=== PATIENT | female | born 1950 | race Caucasian/White ===

== ENCOUNTER 2016-08-17 10:10 | Day surgery (SDC) | payer MEDICARE ==
[~2016-08-17] VITALS: Ht 170.2 cm; Wt 117.9 kg
[~2016-08-17 10:10] MED LIST: ADLT ASA LOW81 MG PO; ASPIRIN81 MG PO; CARVEDILOL12.5 MG PO; CARVEDILOL6.25 MG PO; CIPROFLOXACN500 MG PO; CLONIDINE0.1 MG PO; DEX OU; FLAGYL500 MG PO; FLUOCINONIDE0.055 EX; GLIPIZIDE/METFO1 TA1 PO; GLIPIZIDE5 MG PO; LANTUS100 UNIT/M SC; LEVOTHYROXIN175 MC1 PO; LEVOTHYROXIN25 MC1 PO; LISINOPRIL20 MG PO; LORTAB 7.57.5 MG PO; METFORMIN HCL1000 MG PO; METFORMIN500 MG PO; NEO OU; NORVASC10 M1 PO; PERCOCET1 TA2; PERCOCET1 TA2 PO; POLY OU; PRAVASTATIN80 MG PO; TRIAMCINOLON0.11 EX; TYLENOL500 MG OR; ZESTRIL10 M1 PO
[2016-08-17 13:11] VITALS: BP 127/61
== END 2016-08-17 13:10 | disposition home or self-care (01) ==
LOC: ENDO 10:10 → ORM 15:00 → ENDO 15:00
PROVIDERS: ATTEND Surgery
PROC: 0D5H8ZZ Destruction of Cecum, Via Natural or Artificial Opening Endoscopic (ICD-10-PCS; principal; 2016-08-17)
PROC: 0DJ08ZZ Inspection of Upper Intestinal Tract, Via Natural or Artificial Opening Endoscopic (ICD-10-PCS; 2016-08-17)
DX: D64.9 Anemia, unspecified (principal); R19.5 Other fecal abnormalities; K55.20 Angiodysplasia of colon without hemorrhage; I10 Essential (primary) hypertension; E78.5 Hyperlipidemia, unspecified; E03.9 Hypothyroidism, unspecified; E11.9 Type 2 diabetes mellitus without complications; Z90.49 Acquired absence of other specified parts of digestive tract

== ENCOUNTER 2020-01-13 09:51 | Inpatient (IN) | payer MEDICARE, MEDICAID ==
[~2020-01-13] VITALS: Ht 170.2 cm; Wt 100.0 kg
[~2020-01-13 09:51] MED LIST changes: +LEVOTHYROXIN150 MCG PO; -LEVOTHYROXIN175 MC1 PO
--- NOTE | 2020-01-13 09:51 | NUR ---
PATIENT TO ROOM VIA WHEELCHAIR AND PHYSICIAN NOTIFIED OF PATIENT STATUS
[2020-01-13 10:34] LABS: HEMATOCRIT 36.5 % (37.0-47.0); HEMOGLOBIN 11.3 g/dl (12.0-16.0); IMMATURE GRANULOCYTES 0.3 % (0.0-5.0); MEAN CELL VOLUME 83.3 fL CALC (80.0-100.0); MEAN CORPUSCULAR HGB 25.8 pG CALC (26.0-32.0); NEUT# 6.1 thou/uL (2.00-7.15); RED BLOOD COUNT 4.38 mill/uL (4.20-5.60); RED CELL DISTRI WIDTH 16.2 % (11.5-15.5)
--- NOTE | 2020-01-13 10:45 | NUR ---
1030 PATIENT RESTING QUIETLY. AT BEDSIDE.
[2020-01-13 10:50] LABS: ALKALINE PHOSPHATASE 138 u/l (38-126); ANION GAP 11 (6-22 (CALC)); BILIRUBIN, TOTAL 0.4 mg/dL (0.0-1.4); BUN 16 mg/dL (8-23); BUN/CREATININE RATIO 13 (12-20 (CALC)); CARBON DIOXIDE 26 mmol/l (22-30); CHLORIDE 108 mmol/l (95-108); CREATININE 1.2 mg/dL (0.5-1.0); GFR 45 ML/MIN (>=60 (CALC)); GFR FOR AFR.AMER. 54 ML/MIN (>=60 (CALC)); POTASSIUM 4.5 mmol/l (3.5-5.1); SGOT/AST 23 u/l (9-36); SODIUM 140 mmol/l (137-146); TOTAL PROTEIN 7.8 g/dL (6.3-8.2)
[2020-01-13 10:51] LABS: URINE BILIRUBIN - DIPSTICK NEGATIVE (NEGATIVE); URINE BLOOD DIPSTICK NEGATIVE (NEGATIVE); URINE COLOR YELLOW; URINE GLUCOSE - DIPSTICK NEGATIVE (NEGATIVE); URINE KETONE NEGATIVE (NEGATIVE); URINE LEUK ESTERASE NEGATIVE (NEGATIVE); URINE NITRITE - DIPSTICK NEGATIVE (Negative); URINE PROTEIN - DIPSTICK NEGATIVE (NEG-TRACE); URINE SPECIFIC GRAVITY <=1.005; URINE UROBILINOGEN - DIPSTICK 0.2 E.U./dL (0.2)
[2020-01-13 10:54] LABS: C-REACTIVE PROTEIN < 0.5 mg/dL (0-0.9)
[2020-01-13] MEDS ORDERED: LANTUS SOL100 UNIT/M SC ×2 (11:08→11:09)
[2020-01-13] MEDS ORDERED: MONTELUKAST SOD10 MG PO (11:13)
[2020-01-13] MEDS ORDERED: OTEZLA 10 & 201 TAB PO (11:15)
[2020-01-13] MEDS ORDERED: OZEMPIC2 MG/1.5 M SC (11:15)
--- NOTE | 2020-01-13 11:30 | NUR ---
new 20g placed in rac for cta as ordered, pt verbalizes understanding of reason/need for 2nd iv access. spouse remains at bedside
--- NOTE | 2020-01-13 12:37 | NUR ---
PATIENT NOTIFIED THAT SHE WILL BE ADMITTED TO M/S. OPPORTUNITY FOR QUESTIONS.
--- NOTE | 2020-01-13 12:48 | NUR ---
RADIOLOGY AT BEDSIDE FOR TRASNPORT OT INTERVENTIONAL RADIOLOGY FOR THORACENTESIS, PT EMOTIONAL BUT COOPERATIVE, SPOUSE REMAINS AT BEDSIDE
--- NOTE | 2020-01-13 13:30 | NUR ---
PATIENT RETURNED FROM THOROCENTESIS, STATES THAT WAS EASY! aPPEARS LESS ANXIOUS AND IS BREATHING EASIER.
--- NOTE | 2020-01-13 14:28 | NUR ---
ASSESSMENT IS COMPLETED: IV SITE IS FREE FROM REDNESS OR EDEMA. HR IS REG,PULSES ARE STRONG X4, ABD IS SOFT WITH ACTIVE BS. BREATH SOUNDS ARE CLEAR,BILATERALLY, NO C/O SOB, TELE MONITOR IN PLACE. CONTINUE TO OSBERVE AND MONITOR.
--- NOTE | 2020-01-13 14:42 | NUR ---
WARM BLANKET GIVEN FOR COMFORT. WAITING ON ROOM. SPOUSE AT BEDSIDE.
--- NOTE | 2020-01-13 15:16 | NUR ---
antibiotic infusion completed. Spouse at bedside. Patient doing well.
--- NOTE | 2020-01-13 15:31 | NUR ---
RECEIVED REPORT FROM KELSEY TURK IN THE ER.
--- NOTE | 2020-01-13 15:40 | NUR ---
to ms reilly 289 via wc. alatorre. report to Maryann GORDON in SBAR format. IV SITES HEALTHY AND PATENT.
--- NOTE | 2020-01-13 15:48 | NUR ---
PT ARRIVED VIA WC WITH STAFF. IV SITE FREE FROM REDNESS OR EDEMA.
[2020-01-13 16:00] VITALS: BP 133/65
--- NOTE | 2020-01-13 16:50 | NUR ---
PT HASBEEN SITTING IN THE COUCH. NO DISTRESS NOTED. C/O BEING COLD. CONTINUE TO OSBERVE AND MONITOR.
[2020-01-13 19:40] VITALS: BP 134/64
--- NOTE | 2020-01-13 20:45 | NUR ---
PT UP WALKING AROUND THE ROOM. NO S/O DISTRESS OR SOB. PT DENIES FEELING SOB, REPORTS FEELING MUCH BETTER THAN EARLIER. DRESSING TO R.SIDE OF BACK THORO INSERTION SITE APPEARS CDI. PT REPORTS BM EARLIER THIS AFTERNOON, DENIES DIAHRREA,NAUSEA AND REPORTS MINIMAL OCCASIONAL COUGH W/SCANT SPUTUM. MEDICATION ADMINISTERED AT THIS TIME PER ORDERS. POC AND DC DISCUSSED WITH PT. SHE REPORTS THAT SHE MAY WANT TO HAVE A SLEEP AIDE LATER, PT INSTRUCTED TO CALL WHEN SHE IS READY FOR IT, VERBALIZED UNDERSTANDING. CALL LIGHT IN HAND. PT REPORTS SHE IS GOING TO WATCH "THE VOICE" ON TV.
--- NOTE | 2020-01-13 22:45 | NUR ---
PT MEDICATED FOR SLEEP PER REQUEST. PT DENIES ANY OTHER NEEDS.
[2020-01-13 23:29] VITALS: BP 139/60
--- NOTE | 2020-01-13 23:48 | NUR ---
PT APPEARS TO BE SLEEPING, OPENED EYES I ENTERED, DENIES ANY NEEDS.
--- NOTE | 2020-01-14 05:11 | NUR ---
PT SITING IN RECLINER AWAKE, READING ON COMPUTER. NO S/O DISTRESS NOTED. PT REPORTS WANTING TO LEAVE TODAY TO GO TO [place] AND TO [place]. PT REQUESTING COFFEE AND ICE, WILL PROVIDE IN 30 MIN. EXPLAINED TO THE PT THAT SHE NEEDS TO WAIT A LITTLE WHILE AFTER TAKING SYNTHROID, VERBALIZED UNDERSTANDING. CALL LIGHT AT SIDE AND PT ENCOURAGED TO CALL NEEDS ARISE.
[2020-01-14 05:17] VITALS: BP 124/56
[2020-01-14 05:27] LABS: HEMATOCRIT 36.7 % (37.0-47.0); HEMOGLOBIN 11.3 g/dl (12.0-16.0); IMMATURE GRANULOCYTES 0.5 % (0.0-5.0); MEAN CELL VOLUME 83.4 fL CALC (80.0-100.0); MEAN CORPUSCULAR HGB 25.7 pG CALC (26.0-32.0); MEAN CORPUSCULAR HGB CONC 30.8 g/dL CAL (32.0-36.0); NEUT# 7.53 thou/uL (2.00-7.15); RED BLOOD COUNT 4.4 mill/uL (4.20-5.60); RED CELL DISTRI WIDTH 16.4 % (11.5-15.5)
[2020-01-14 06:11] LABS: ALBUMIN 3.4 g/dL (3.2-5.0); ALKALINE PHOSPHATASE 122 u/l (38-126); ANION GAP 13 (6-22 (CALC)); BILIRUBIN, TOTAL 0.5 mg/dL (0.0-1.4); BUN 11 mg/dL (8-23); BUN/CREATININE RATIO 12 (12-20 (CALC)); CALCULATED LDLCHOLESTEROL 73 mg/dL (62-129 (CALC)); CARBON DIOXIDE 22 mmol/l (22-30); CHLORIDE 110 mmol/l (95-108); CHOLESTEROL HDL RATIO 4.5 (<4.4 (CALC)); CREATININE 0.9 mg/dL (0.5-1.0); GFR > 60 ML/MIN (>=60 (CALC)); GFR FOR AFR.AMER. > 60 ML/MIN (>=60 (CALC)); HDL CHOLESTEROL 28 mg/dL (>=40); MAGNESIUM 2.2 mg/dL (1.6-2.3); POTASSIUM 4.7 mmol/l (3.5-5.1); SGOT/AST 20 u/l (9-36); SODIUM 141 mmol/l (137-146); TOTAL CHOLESTEROL 124 mg/dl (0-199); TOTAL PROTEIN 6.8 g/dL (6.3-8.2); TOTAL TRIGLYCERIDES 116 mg/dl (30-149); VLDL CHOLESTROL 23 mg/dl (1-41 (CALC))
[2020-01-14 07:45] VITALS: BP 118/53
--- NOTE | 2020-01-14 07:45 | NUR ---
ASSESSMENT IS COMPLETED: IV SITE IS FREE FROM REDNESS OR EDEMA. HR IS REG,PULSES ARE STRONG X4, ABD IS SOFT WITH ACTIVE BS. BREATH SOUNDS ARE CLEAR, BILATERALLY, NO C/O SOB. PT STATED" FEEL A LITTLE WINDED, BUT NOT BAD". TELE MONTIOR IN PLACE. CONTINUE TO OBSERVE AND MONITOR.
--- NOTE | 2020-01-14 10:46 | NUR ---
PT BEING TRANSPORTED TO HAVE A CXR COMPLETED VIA WC
--- NOTE | 2020-01-14 11:05 | NUR ---
PT RETURNED FROM HAVING CXR COMPLETED
[2020-01-14] MEDS ORDERED: ZITHROMAX250 MG PO (11:24)
[2020-01-14 11:33] VITALS: BP 116/53
--- NOTE | 2020-01-14 12:15 | NUR ---
PT IS RELAXING ON THE SIDE OF THE BED, NO DISTRESS NOTED IV SITE IS FREE FROM REDNESS OR EDEMA.
[2020-01-14] MEDS ORDERED: XARELTO20 MG PO (12:24)
--- NOTE | 2020-01-14 13:15 | NUR ---
DISCHARGE INSTRUCTIONS GIVEN AND VERBALIZED UNDERSTANDING. IV SITE DISCONTINUED CATHETER INTACT,.FAMILY WAITING FOR PT. CONTINUE TO OSBERVE AND MONITOR.
--- NOTE | 2020-01-14 13:30 | NUR ---
Discharge instructions given. Patient verbalizes understanding of same. Discharged in stable condition via Wheelchair to Home with family. All belongings sent with pt.
== END 2020-01-14 13:35 | disposition home or self-care (01) | DRG 194 ==
LOC: ED 09:51 → ED-I 12:32 → ED 12:50 → MS2 12:51
PROVIDERS: Family Medicine; Nurse Practitioner; ADMIT Internal Medicine; ATTEND Internal Medicine
PROC: 0W993ZZ Drainage of Right Pleural Cavity, Percutaneous Approach (ICD-10-PCS; principal; 2020-01-13)
DX: J18.9 Pneumonia, unspecified organism (principal); J91.8 Pleural effusion in other conditions classified elsewhere; I48.92 Unspecified atrial flutter; I48.91 Unspecified atrial fibrillation; E11.9 Type 2 diabetes mellitus without complications; I10 Essential (primary) hypertension; E66.9 Obesity, unspecified; E03.9 Hypothyroidism, unspecified; E78.5 Hyperlipidemia, unspecified; I25.10 Atherosclerotic heart disease of native coronary artery without angina pectoris; Z68.34 Body mass index [BMI] 34.0-34.9, adult; Z79.4 Long term (current) use of insulin; Z20.828 Contact with and (suspected) exposure to other viral communicable diseases
CPT/HCPCS: J1650; Q9967

== ENCOUNTER 2020-02-11 15:20 | Observation (INO) | payer MEDICARE, MEDICAID ==
[~2020-02-11] VITALS: Ht 170.2 cm; Wt 112.9 kg
[~2020-02-11 15:20] MED LIST changes: +LANTUS SOL100 UNIT/M SC; +LEVOTHYROXIN137 MCG PO; -LEVOTHYROXIN150 MCG PO; +MONTELUKAST SOD10 MG PO; +OTEZLA 10 & 201 TAB PO; +OZEMPIC2 MG/1.5 M SC; +XARELTO20 MG PO; +ZITHROMAX250 MG PO
--- NOTE | 2020-02-11 15:25 | NUR ---
PT TO ROOM VIA WHEELCHAIR FOR BEDSIDE TRIAGE
[2020-02-11] MEDS ORDERED: LISINOPRIL20 MG PO (16:02)
[2020-02-11 16:22] LABS: HEMATOCRIT 39.2 % (37.0-47.0); HEMOGLOBIN 12.2 g/dl (12.0-16.0); IMMATURE GRANULOCYTES 0.3 % (0.0-5.0); MEAN CORPUSCULAR HGB 25.5 pG CALC (26.0-32.0); MEAN CORPUSCULAR HGB CONC 31.1 g/dL CAL (32.0-36.0); NEUT# 7.57 thou/uL (2.00-7.15); RED BLOOD COUNT 4.78 mill/uL (4.20-5.60); RED CELL DISTRI WIDTH 15.8 % (11.5-15.5)
[2020-02-11 16:40] LABS: ALKALINE PHOSPHATASE 141 u/l (38-126); BILIRUBIN, TOTAL 0.5 mg/dL (0.0-1.4); BUN 11 mg/dL (8-23); BUN/CREATININE RATIO 11 (12-20 (CALC)); CHLORIDE 104 mmol/l (95-108); CREATININE 1.1 mg/dL (0.5-1.0); GFR 49 ML/MIN (>=60 (CALC)); GFR FOR AFR.AMER. 60 ML/MIN (>=60 (CALC)); POTASSIUM 4.6 mmol/l (3.5-5.1); SGOT/AST 18 u/l (9-36); SODIUM 142 mmol/l (137-146)
--- NOTE | 2020-02-11 16:40 | NUR ---
PT ASSITED TO BSC, APPX 500 CC OF CLEAR YELLOW URINE PROD. PT REQUESTING TO SIT ON EDGE OF BED TO BREATHE BETTER.
[2020-02-11 16:44] LABS: ALBUMIN 4.4 g/dL (3.2-5.0); ANION GAP 15 (6-22 (CALC)); CARBON DIOXIDE 28 mmol/l (22-30); TOTAL PROTEIN 8.6 g/dL (6.3-8.2)
--- NOTE | 2020-02-11 16:56 | NUR ---
FLU AND COVID SWABS COLLECTED. PT TOLERATED WELL. PT REQUESTING WATER. DR HASSAN INFORMED AND VERBALIZED FOR PT TO CONSUME SMALL AMOUNT OF PO FLUIDS.
[2020-02-11 17:33] LABS: URINE BILIRUBIN - DIPSTICK NEGATIVE (NEGATIVE); URINE BLOOD DIPSTICK NEGATIVE (NEGATIVE); URINE CLARITY CLEAR; URINE COLOR YELLOW; URINE GLUCOSE - DIPSTICK NEGATIVE (NEGATIVE); URINE KETONE NEGATIVE (NEGATIVE); URINE LEUK ESTERASE NEGATIVE (Negative); URINE NITRITE - DIPSTICK NEGATIVE (Negative); URINE PH 6.5 (4.5-8.0); URINE PROTEIN - DIPSTICK NEGATIVE (NEG-TRACE); URINE UROBILINOGEN - DIPSTICK 0.2 E.U./dL (0.2)
--- NOTE | 2020-02-11 17:35 | NUR ---
PT RESTING ON EDGE OF STRETCHER FOR COMFORT, ADVISED OF NAUSEA. DR HASSAN NOTIFIED AND ORDER RECEIVED FOR ZOFRAN. PT MEDICATED WITH ANTIEMETIC. TOLERATED ADMINISTRATION WELL. PT REPOSITIONED IN BED FOR COMFORT.
--- NOTE | 2020-02-11 18:30 | NUR ---
PT RESTING ON STRETCHER. ADVISED OF ADMISSION TO FLOOR. VERBALIZED UNDERSTANDING. TEAROOM HOST IN PLACE. NASAL CANNULA @ 2LMIN. VERBALIZES NO NEEDS. CALL LIGHT WITHIN REACH.
--- NOTE | 2020-02-11 18:53 | NUR ---
REPORT GIVEN TO NATAN GORDON
--- NOTE | 2020-02-11 19:13 | NUR ---
TO FLOOR VIA W/C/WITH O2 @ 2 LPM NC/POCKET MONITOR. BELONGINGS WITH PT. PT AMBULATORY TO BED UPON ARRIVAL. RESP EASY REG. VSS.
--- NOTE | 2020-02-11 19:19 | NUR ---
PT ARRIVED TO [facility]2 VIA WHEELCHAIR ACCOMPANIED BY ER NURSE, PT ALERT AND ORIENTED X3, AMBULATORY, ORIENTED PT TO ROOM AND CALL LIGHT, DISCUSSED POC, PT VOICES NO NEEDS OR COMPLAINTS AT THIS TIME, 02 2L NC, EDEMA TO BLE GREATER ON R SIDE. NOTED REDNESS TO R BREAST FOLD, ADMISSION ASSESSMENT COMPLETED, CALL LIGHT IN REACH,CONTINUE TO MONITOR.
[2020-02-11 19:20] VITALS: BP 148/78
--- NOTE | 2020-02-11 20:23 | NUR ---
PT RESTING IN BED, MEDICATED PER MAY. CALL LIGHT IN REACH,CONTINUE TO MONITOR, O2 HUMIDIFIED AT THIS TIME.
[2020-02-12] VITALS: BP 102/48
--- NOTE | 2020-02-12 00:27 | NUR ---
PT SITTING ON SIDE OF BED ON CELLPHONE, VOICES NO NEEDS OR COMPLAINTS AT THIS TIME, CALL LIGHT IN REACH,CONTINUE TO MONITOR.
--- NOTE | 2020-02-12 01:28 | NUR ---
PT RESTING IN BED, ED CALLED STATES PT HR 35, PT AWAKENED, NO SIGNS OF DISTRESS NOTED, RESP EVEN AND UNLABORED. PT C/O ABD PAIN, PT MEDICATED PER MAY, CALL LIGHT IN REACH,CONTINUE TO MONITOR.
[2020-02-12 04:00] VITALS: BP 99/48
--- NOTE | 2020-02-12 05:07 | NUR ---
PT SITTING ON SIDE OF BED, NO SIGNS OF DISTRESS NOTED, RESP EVEN AND UNLABORED. PT STATES SHE IS UNCOMFORTABLE IN BED. ASSISTED PT TO RECLINER AT BEDSIDE, CALL LIGHT IN REACH,CONTINUE TO MONITOR.
[2020-02-12 07:43] VITALS: BP 124/59
--- NOTE | 2020-02-12 07:43 | NUR ---
RECIEVED REPROT FROM HEIDI THOMAS. PT SITTING IN UP IN CHAIR UPON ENTERING ROOM. INTRODUCED SELF TO PT AND DISCUSSED POC. PT IS A/O X3 AND ABLE TO VOICE NEEDS. ASSESSMENT AND VITALS COMPLETED. BP 124/59, HR 62, O2 96% ON 2L NC. RESPIRATIONS ARE EVEN AND UNLABORED,PT REPORTS INCREASED SOB ON EXCERTION. HEART RHYTHM IS IRREGULAR, AFIB PER ER MONITORING. BOWEL SOUNDS ARE ACTIVE IN ALL QUADRANTS, LAST REPORETD BM 02/11/2020. RADIAL PULSES STRONG. PEDAL PULSES WEAK. 3+ EDEMA NOTED TO BLE.SKIN REDDENED AND IRRITATED UNDER RIGHT BREAST. MD TO BE NOTFIED. #20G IN RAC FLUSHED, SITE APPEARS HEALTHY AND PATENT. PT COMPLAINS OF PAIN IN RIGHT FLANK UPON DEEP BREATHING. UTILIZATION SUPERVISOR INFORMED PT OF PLANNED THORACENTESIS. PT VERBALIZEED UNDERSTANDING. PT DENIES OF ANY NEEDS AT THIS TIME. ALL SAFETY PRECAUTIONS ARE IN PLACE WITH CALL LIGHT IN REACH. WILL CONTINUE TO MONITOR.
[2020-02-12 07:58] LABS: INTERNATIONAL NORMALIZED RATIO 1.1 RATIO (0.7-1.3); PROTHROMBIN TIME 11.2 SECONDS (9.0-12.5)
--- NOTE | 2020-02-12 08:45 | NUR ---
DR DUBOIS AT BEDSIDE DISCUSSING POC WITH PT
--- NOTE | 2020-02-12 09:45 | NUR ---
PT TRANSPORTED TO RADIOLOGY VIA WHEELCHAIR ACCOMPAINED BY JIGAR STARK IN STABLE CONDITION WITH OXYGEN IN PLACE
--- NOTE | 2020-02-12 10:34 | NUR ---
PT BACK FROM RADIOLOGY IN STABLE CONDITION.PT AMBULATED FROM WHEELCHAIR TO CHAIR WITH LITTLE DIFFICULTY. 2L NC REAPPLIED. PT DENIES OF ANY NEEDS OR DISCOMFORTS AT THIS TIME. ALL SFAETY PRECAUTIONS ARE IN PLACE WITH ROBERT LIGHT IN REACH. WILL CONTINUE TO MONITOR.
[2020-02-12 10:40] VITALS: BP 104/61
--- NOTE | 2020-02-12 11:39 | NUR ---
PT SITTING IN RECYLINER. RESPIRATIONS ARE EVEN AND UNLABORED ON 2L NC. NYSTATIN APPLIED UNDER RIGHT BREAST. PT TOLERATED WELL. PT REQUEST ICE AND ADDITIONAL BOX OF TISSUES. PT DENIES ANY ADITIONAL NEEDS AT THIS TIME. ALL SFAETY PRECAUTIONS ARE IN PLACE WIHT CALL LIGHT IN REACH. WILL CONTINUE TO MONITOR
--- NOTE | 2020-02-12 11:49 | NUR ---
I.S ADMINISTERED TO PT. PT EDUCATED ON USE. PT VERBALIZED UNDERSTANDING. UPON DEMISTRATING, PT WENT TO 500. SKI TOPPER EXPLAINED THAT I.S WAS TO BE USE 10 TIME PER HOUR. PT VERBAILZED UNDERSTANDING. ALL SAFTEY PRECAUUTIONS REMAINS IN PLACE. WILL CONTINUE TO MONITOR.
--- NOTE | 2020-02-12 12:20 | NUR ---
TELE HELTH CONSULTEED COMPLETED WITH DR ASTUDILLO.
--- NOTE | 2020-02-12 15:40 | NUR ---
WALKING TEST COMPLETED. PT OXYGEN SAT 93% ON ROOM AIR. OXYGEN SAT DROPPED TO 80% ON ROOM AIR WHILE WALKING. [employer] DRIVER ASSISTED PT BACK INTO CHAIR. PT SATING 87% ON ROOM AIR. 2L NC REPPLIED. PT SATING 95%. RESIRATIONS REMAINS EVEN AND UNALBROED. PT DENIES ANY ADDITIONAL NEEDS AT THSI TIME. ALL SFAETY PRECAUTIONS ARE IN PLACE. WILL CONTINUE TO MONITOR
[2020-02-12 16:03] VITALS: BP 116/68
--- NOTE | 2020-02-12 16:51 | NUR ---
PT SITTING IN CHAIR. RESPIRATIONS ARE EVEN AND UNLABORED ON 2L NC. IV ANTIBIOTICS INFUSING WITH EASE, SITE APPEARS HEALTHY AND PATENT. PT DENIES OF ANY PAIN OR DISCOMFORTS AT THIS TIME. ALL SAFETY PRECAUTIONS ARE IN PLACE WITH CALL LIGHT IN REACH. WILL CONTINUE TO MONITOR.
[2020-02-12 19:00] VITALS: BP 117/55
--- NOTE | 2020-02-12 20:00 | NUR ---
PHYSICAL ASSESMENT COMPLETE. PT CURRENTLY IN PAIN AND DISCOMFORT. SCHEDULED MEDICATIONS AND PRN MEDICATION ADMINISTERED, SEE E-MAR. PT DENIES ANY NEEDS AT THIS TIME. PLAN OF CARE REVIEWED, PT DENIES QUESTIONS, VERBALIZES UNDERSTANDING. ITEMS WITHIN REACH, BED LOCKED IN LOW POSITION W/ BEDRAILS UP X2. CALL LIRA WITHIN REACH, AGREES TO CALL PRN.
[2020-02-13] VITALS (7 sets, daily range): BP systolic 91–121; BP diastolic 44–59
--- NOTE | 2020-02-13 00:02 | NUR ---
PT LAYING IN BED WITH EYES CLOSED, APPEARS TO BE SLEEPING, APPEARS COMFORTABLE AND IN NO DISTRESS. RESPIRATIONS REGULAR AND UNLABORED. ITEMS REMAIN WITHIN REACH, CALL LIRA REMAINS WITHIN REACH. BED REMAINS LOCKED AND IN LOW POSITION WITH BEDRAILS UP X2. WILL CONTINUE TO MONITOR.
--- NOTE | 2020-02-13 02:30 | NUR ---
PT REMOVED TELEMENTRY BOX. FOUND CRYING AT BESIDE. STATES SHE IS TIRED OF BEING IN THE HOSPITAL. GOT PT PT WASH CLOTH AND TOWEL AND CLEAN GOWN. PT CLEANED UP. TELEMENTRY IN PLACE. PT STATES SHE IS FEELING BETTER. WILL CONTINUE TO MONITOR.
[2020-02-13 05:25] LABS: HEMATOCRIT 33.7 % (37.0-47.0); MEAN CELL VOLUME 84.5 fL CALC (80.0-100.0); MEAN CORPUSCULAR HGB 25.6 pG CALC (26.0-32.0); MEAN CORPUSCULAR HGB CONC 30.3 g/dL CAL (32.0-36.0); RED BLOOD COUNT 3.99 mill/uL (4.20-5.60); RED CELL DISTRI WIDTH 15.8 % (11.5-15.5)
[2020-02-13 05:29] LABS: HEMOGLOBIN 10.2 g/dl (12.0-16.0)
[2020-02-13 05:37] LABS: CREATININE 1.3 mg/dL (0.5-1.0); MAGNESIUM 2.2 mg/dL (1.6-2.3)
[2020-02-13 06:12] LABS: POTASSIUM 5.2 mmol/l (3.5-5.1)
--- NOTE | 2020-02-13 07:46 | NUR ---
RECIEVED REPORT FROM ROSALEE MEDRANO. PT SITTING IN CHAIR UPON ENTERING ROOM. INTRODUCED SELF TO PT AND DISCUSSED POC. PT IS A/O X3. ASSESSMENT AND VITALS COMPLETED AT THIS TIME. BP 109/59, HR 79., O2 94% ON 2L NC. RESPIRATIONS ARE EVEN AND UNLABORED. PT IS NONDEPENDENT OF OXYGEN AT HOME.HEART RHYTHM IS IRREGULAR, AFIB PER ER MONITORING. BOWEL SOUNDS ARE ACTIVE IN ALL QUADRANTS, LAST RPEORETD BM 02/12/2020. RADIAL PULSES STRONG. PEDAL PULSES WEAK. 3+ EDEMA TO BLE. SKIN IS COOL AND DRY WITH NO BREAKDOWN NOTED. PT PRESENTS WITH SMALL MULTILE BRUISES ON BILERTERAL ARMS. #20G IN RAG FLUSHED, SITE APPEARS HEALTHY AND PATENT. PT DENCOMPLAINS OF 6/10 PAIN IN RIGHT FLANK AREA. NEGOTIATOR OFFERED TYLENOL STATING "IT HASNT HELP." MD TO BE NOTFIED. PT DENIES ANY NEEDS AT THIS TIME. ALL SFAETY PRECAUTIONS AR EIN PLACE WIHT CALL LIGHT IN REACH. WILL CONTINUE TO MONITOR
--- NOTE | 2020-02-13 08:48 | NUR ---
PT TRANSPORTED TO XRAY IN STABLE CONDITION ON 2L NC ACCOMPAINED BY JIGAR PUGA
--- NOTE | 2020-02-13 09:02 | NUR ---
PT BACK IN ROOM. PT ASSISTED BACK INTO CHAIR. RESPIRATIONS ARE EVEN AND UNLABORED ON 2L NC. PT DENIES ANY PAINS OR NEEDS AT THIS TIME. ALL SAFETY PRECAUTIONS ARE IN PLACE WIHT CALL LIGHT IN REACH. WILL CONTINUE TO MONITOR
--- NOTE | 2020-02-13 09:16 | NUR ---
DR DUBOIS AT BEDSIDE DISCUSSING POC WITH PT
--- NOTE | 2020-02-13 12:16 | NUR ---
REASSESSMENT OF BP RESUTLING IN 113/59, HR 65, O2 96% ON 2L NC. RESPIRATIONS ARE EVEN AND UNLABORED. PT PRESONAL OXYGEN TANK AT BEDSIDE. PT DENIES ANY PAIN OR NEEDS AT THIS TIME. ALL SAFTEY PRECAUTIONS ARE IN PLACE WITH CALL LIGHT IN REACH. WILL CONTINUE TO MONITOR
--- NOTE | 2020-02-13 15:52 | NUR ---
PT RESTING IN SEMI FOWLERS POSITION. RESPIRATIONS ARE EVEN AND UNLABORED ON 2L NC. XANAX ADMINISTERED PER PT REQUEST. PT TOELRATED WELL. IV ANTIBIOTICS INFUSING PER EASE, SITE APPEARS HEALTHY AND PATENT. PT DENIES ANY NEEDS AT PAIN AT THIS TIME. ALL SAFETY PRECAUTIONS ARE IN PLACE WITH CALL LIGHT IN REACH. WILL CONTINUE TO MONITOR
--- NOTE | 2020-02-13 20:01 | NUR ---
PHYSICAL ASSESMENT COMPLETE. PT CURRENTLY DENIES PAIN OR DISCOMFORT. SCHEDULED MEDICATIONS AND PRN MEDICATION ADMINISTERED, SEE E-MAR. PT DENIES ANY NEEDS AT THIS TIME. PLAN OF CARE REVIEWED, PT DENIES QUESTIONS, VERBALIZES UNDERSTANDING. ITEMS WITHIN REACH, BED LOCKED IN LOW POSITION W/ BEDRAILS UP X2. CALL LIRA WITHIN REACH, AGREES TO CALL PRN.
[2020-02-14] VITALS: BP 123/69
--- NOTE | 2020-02-14 03:51 | NUR ---
PT RESTING IN BED, NO SIGNS OF DISTRESS NOTED, RESP EVEN AND UNLABORED. PT VOICES NO NEEDS OR COMPLAINTS AT THIS TIME. CALL LIGHT IN REACH, CONTINUE TO MONITOR.
[2020-02-14 04:00] VITALS: BP 134/59
[2020-02-14 05:24] LABS: HEMATOCRIT 35.3 % (37.0-47.0); HEMOGLOBIN 10.5 g/dl (12.0-16.0); MEAN CELL VOLUME 83.6 fL CALC (80.0-100.0); MEAN CORPUSCULAR HGB 24.9 pG CALC (26.0-32.0); MEAN CORPUSCULAR HGB CONC 29.7 g/dL CAL (32.0-36.0); RED BLOOD COUNT 4.22 mill/uL (4.20-5.60); RED CELL DISTRI WIDTH 15.7 % (11.5-15.5)
[2020-02-14 05:37] LABS: ANION GAP 13 (6-22 (CALC)); BUN 17 mg/dL (8-23); BUN/CREATININE RATIO 16 (12-20 (CALC)); CARBON DIOXIDE 28 mmol/l (22-30); CHLORIDE 101 mmol/l (95-108); GFR 55 ML/MIN (>=60 (CALC)); GFR FOR AFR.AMER. > 60 ML/MIN (>=60 (CALC)); POTASSIUM 5.1 mmol/l (3.5-5.1); SODIUM 137 mmol/l (137-146)
[2020-02-14 07:59] VITALS: BP 129/57
--- NOTE | 2020-02-14 07:59 | NUR ---
RECIEVED REPORT FROM ROSALEE MEDRANO. PT SITTING IN CHAIR UPON ENTERING ROOM. INTRODUCED SELF TO PT AND DISCUSSED POC. PT IS A/O X3 AND ABLE TO VOICE NEEDS. ASSESSMENT AND VITALS COMPLETED. BP 129/57, HR 77, O2 94% ON ROOM AIR. RESPIRATIONS ARE EVEN AND UNLABORED. 2L NC AT BEDSIDE PRN. EDUCATED PT ON DANY IF SOB, PT VERBALIZED UNDERSTANDING. HEART RHYTHM IRREGULAR, AFIB PER ER MONITORING. BOWEL SOUNDS ARE ACTIVE IN ALL QUADRANTS, LAST RPEORETD BM 02/11/2020. PT AGREED TO TRY PRUNE JUICE. RADIAL PULSES STRONG. PEDAL PUSLES WEAK. 3+ EDEMA NOTED TO BILATERAL ANKLE. #20G IN RAC FLUSHED, SITE APPAEARS HEALTHY AND PATENT. PT DENIES OF ANY PAIN OR DISCOMFORTS BUT REQUEST XANAX FOR ANXIETY. ALL SAFETY PRECAUTIONS ARE IN PLACE WIHT CALL LIGHT IN REACH. WILL CONTINUE TO MONITOR
--- NOTE | 2020-02-14 09:01 | NUR ---
DR DUBOIS AT BEDSIDE DISCUSSING POC.
[2020-02-14 10:40] VITALS: BP 133/66
[2020-02-14] MEDS ORDERED: AMOX/K CLAV875 M1 PO (11:42)
[2020-02-14] MEDS ORDERED: XARELTO20 MG PO (11:42)
[2020-02-14] MEDS ORDERED: LASIX20 MG PO (11:43)
--- NOTE | 2020-02-14 12:19 | NUR ---
WALK TEST COMPLETED. PT SAT 87% WHILE WALKING WITH NO O2.PT VERY SOB ON EXCERTION AND REPORTS DIZZINESS. PT SATING 94% AT RESTING WITH 2L NC. CM NOTIFIED. PT PORTABLE O2 AT BEDSIDE
--- NOTE | 2020-02-14 12:23 | NUR ---
PT EDUACTED ON DSICHARGE INSTRUCTIONS AND NEW MEDICATIONS. PT VERBALIZED UNDERTSNAIND. PT REFUSES ASSISTANCE GETTING DRESSED. AWAITING FOR TRANSPORTATION HOME AT THIS TIME.IV REMOVED WITH CATHATER STILL INTACT, PT TOELRATED WELL. TELE MONITORING REMOVED. ER NOTIFIED. ALL SFAETY PRECAUTIONS ARE IN PLACE WITH CALL LIGHT IN REACH. WILL CONTINUE TO MONITOR
--- NOTE | 2020-02-14 13:06 | NUR ---
Discharge instructions given. Patient verbalizes understanding of same. Discharged in stable condition via Wheelchair to Home with staff. All belongings sent with pt. PT DISHCARGED HOME VIA WHEELCHAIR IN STABLE CONDITION ACCOMPAINED BY JIGAR FRASER. HOME OXYGEN DISCHARGED WITH PT WITH DISCHARGE INSTRUCTIONS AND BELONGINGS
== END 2020-02-14 13:06 | disposition home or self-care (01) ==
LOC: ED 15:20 → ED-I 17:50 → ED 18:07 → MS2 18:08
PROVIDERS: Family Medicine; Nurse Practitioner; Nurse Practitioner Adult Health; ADMIT Internal Medicine; ATTEND Internal Medicine
PROC: 0W993ZZ Drainage of Right Pleural Cavity, Percutaneous Approach (ICD-10-PCS; principal; 2020-02-12)
DX: J18.9 Pneumonia, unspecified organism (principal); J91.8 Pleural effusion in other conditions classified elsewhere; E11.9 Type 2 diabetes mellitus without complications; I10 Essential (primary) hypertension; E03.9 Hypothyroidism, unspecified; E78.5 Hyperlipidemia, unspecified; I48.20 Chronic atrial fibrillation, unspecified; I25.10 Atherosclerotic heart disease of native coronary artery without angina pectoris; F41.9 Anxiety disorder, unspecified; Z79.01 Long term (current) use of anticoagulants; Z87.891 Personal history of nicotine dependence; Z79.4 Long term (current) use of insulin; Z20.828 Contact with and (suspected) exposure to other viral communicable diseases

== ENCOUNTER 2022-01-17 07:46 | Day surgery (SDC) | payer MEDICARE, MEDICAID ==
[~2022-01-17] VITALS: Ht 170.2 cm; Wt 115.7 kg
[~2022-01-17 07:46] MED LIST changes: +AMOX/K CLAV875 M1 PO; +ASPIRIN325 MG PO; +CRESTOR10 MG PO; +GABAPENTIN100 MG PO; +LASIX20 MG PO; +PROAIR HFA IN; +PROTONIX40 M2 PO
[2022-01-17 10:53] VITALS: BP 173/82
== END 2022-01-17 11:17 | disposition home or self-care (01) ==
LOC: ORM 07:46
PROVIDERS: ATTEND Internal Medicine Gastroenterology
PROC: 0DB38ZX Excision of Lower Esophagus, Via Natural or Artificial Opening Endoscopic, Diagnostic (ICD-10-PCS; principal; 2022-01-17)
PROC: 0DB78ZX Excision of Stomach, Pylorus, Via Natural or Artificial Opening Endoscopic, Diagnostic (ICD-10-PCS; 2022-01-17)
PROC: 0DB28ZX Excision of Middle Esophagus, Via Natural or Artificial Opening Endoscopic, Diagnostic (ICD-10-PCS; 2022-01-17)
DX: R13.10 Dysphagia, unspecified (principal); K29.50 Unspecified chronic gastritis without bleeding; K44.9 Diaphragmatic hernia without obstruction or gangrene; I10 Essential (primary) hypertension; E78.5 Hyperlipidemia, unspecified; E11.9 Type 2 diabetes mellitus without complications